=== PATIENT | female | born 1955 | race Caucasian/White ===

== ENCOUNTER → 2017-10-09 | Day surgery (SDC) | payer OTHER ==
--- NOTE | 2017-10-02 10:06 | Diagnostic Imaging Report ---
PROCEDURE: Frontal and lateral views of the chest. COMPARISON: None. INDICATIONS: PREOP CXR FINDINGS: Lines/tubes: None. Lungs: The lungs are well inflated. There is no evidence of pneumonia or pulmonary edema. Minimal subsegmental atelectasis at the lung bases. Pleura: There is no pleural effusion or pneumothorax. Heart and mediastinum: The cardiomediastinal silhouette is unremarkable. Bones: No acute bony abnormality. IMPRESSION: 1. No acute cardiopulmonary disease. Dictated by: ARNALDO HYDE M.D. on 10/02/2017 at 10:10 Electronically approved by: ARNALDO HYDE M.D. on 10/02/2017 at 10:10
[~2017-10-09] MED LIST: BUPIVACAINE HCL 0.5% 10ML MPF VIAL INJ ONE; BYSTOLIC10 MG PO; CEFAZOLIN SOD 2 GM/D5W 50ML 50 ML IV ONE; CITALOPRAM HBR20 MG PO; DEXAMETHASONE SOD PHOS INJ 4 MG/ML VIAL ONE; DEXILANT60 MG PO; FENTANYL CITRATE/PF 100MCG/2 ML INJ ONE; KETOROLAC TROMETHAMINE 30 MG/ML VIAL ONE; LEVOTHYROXINE50 MCG PO; LIDOCAINE HCL 2% LOCAL INJ 5 ML SDV VIAL INJ ONE; MIDAZOLAM HCL 2 MG/2 ML VIAL ONE; ONDANSETRON HCL INJ 2 MG/ML VIAL ONE; PANTOPRAZOLE SO40 MG PO; PROPOFOL IV EMULSION 10 MG/ML 20 ML VIAL ONE; SEVOFLURANE INHAL SOLN 250 ML PEN BTL ONE; TYLENOL WITH C1 EACH PO
--- NOTE | 2017-10-09 17:08 | Operative Report ---
DATE OF PROCEDURE: October 09, 2017 PREOPERATIVE DIAGNOSES 1. 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 2. Deep peroneal nerve entrapment, dorsal aspect of the right foot. 3. Tailor's bunion, right foot. 4. Hammer toe 5th digit right foot. POSTOPERATIVE DIAGNOSES 1. 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 2. Deep peroneal nerve entrapment, dorsal aspect of the right foot. 3. Tailor's bunion, right foot. 4. Hammer toe 5th digit right foot. ANESTHESIA: General endotracheal. HEMOSTASIS: Right thigh tourniquet to 350 mmHg. TITLE OF OPERATION: 1. Modified Arvind bunionectomy of the right foot with internal fixation. 2. Deep peroneal nerve neurolysis with microscopic evaluation. 3. Tailor's bunion correction, right foot. 4. Arthroplasty 5th digit, right foot. ANESTHESIA: General endotracheal. HEMOSTASIS: Right thigh tourniquet at 350 mmHg. PROCEDURE IN DETAIL: The patient was taken to the operating room in a mildly sedated state and placed upon the operating table in supine position. Following induction of general anesthetic, the right lower extremity was elevated to 60 degrees to exsanguinate before inflating the pneumatic thigh tourniquet to 350 mmHg for hemostasis. Right left lower extremity is placed upon the operating table prior to performing the following procedure: Procedure #1: Modified Arvind bunionectomy of the right foot. An approximately 6 cm dorsilinear incision was made overlying the dorsal medial aspect of the 1st metatarsophalangeal joint of the right foot. Incision was deepened via sharp and blunt dissection down to the level of the dorsal capsular structure. Care was taken to identify and retract all vital structures encountered. The head of the 1st metatarsal below the surgical site was remodeled utilizing oscillating saw. The conjoined tendon of the adductor hallucis muscle was identified and tenotomized. A [id number] V osteotomy was placed at the apex distally and at the base proximally to allow for relative shift lateral-shelley over the head of the more proximal segment, which was then impacted and stabilized with 2 cortical bone screws. Medial eminence was further remodeled as was the dorsal prominence. DJD was noted within the joint but not in a severe manner. There was approximately 80 percent articulate cartilage intact. Attention was then directed to the dorsal aspect of foot where the deep peroneal nerve was noted to be entrapped. Linear longitudinal incision was made overlying the entrapped area. The deep peroneal nerve on the dorsal aspect of the tarsus of the right foot the incision was deepened via sharp and blunt dissection down to the level of the actual entrapment of the nerve overlying the tarsus where the extensor hallucis brevis tendon extended across the dorsal aspect of the deep peroneal nerve. This tendon was sectioned in that area and the nerve itself was treated under microscopic evaluation with neurolysis of all adhesions. This having been accomplished, the area was irrigated with copious amounts of sterile saline solution. Human tissue allograft was used to be applied overlying that area to facilitate nerve healing. The deep closure was 3-0 Vicryl. Subcutaneous closure was 4-0 Vicryl and skin closure 4-0 nylon. Attention was then directed to the Tailor's bunion site. Linear longitudinal incision made overlying the 5th met head. Lateral aspect was remodeled utilizing oscillating saw and rotary bur. The area was irrigated and deep closure in layers of 3-0 Vicryl and 4-0 nylon. The attention was then directed to the 5th digit where a very large prominence of 5th proximal phalangeal head laterally was noted. Linear incision was made and an arthroplasty was performed with removal of the head of the 5th digit proximal phalanx. The area was then irrigated with copious amounts of sterile saline solution and deep closure with 3-0 Vicryl. Tendon repair with 3-0 Vicryl and skin closure with 4-0 nylon. The areas of surgery were then blocked with 0.5 Marcaine and Decadron [place]. Release of the tourniquet showed a normal hyperemic flush to all digits of the right foot and patient left the operating room with vital signs stable in apparent satisfactory condition, having tolerated both the anesthetic and procedure very well. Job#: [id number]
== END | disposition home or self-care (01) ==
LOC: OR 07:03
PROVIDERS: ATTEND Podiatrist Foot Surgery
DX: M20.11 Hallux valgus (acquired), right foot (principal); G57.31 Lesion of lateral popliteal nerve, right lower limb; M21.621 Bunionette of right foot; M20.41 Other hammer toe(s) (acquired), right foot; M19.071 Primary osteoarthritis, right ankle and foot; I10 Essential (primary) hypertension; K21.9 Gastro-esophageal reflux disease without esophagitis; F41.9 Anxiety disorder, unspecified; Z88.2 Allergy status to sulfonamides; Z01.810 Encounter for preprocedural cardiovascular examination; Z01.818 Encounter for other preprocedural examination
CPT/HCPCS: 28110; 28285; 28296; 64704; 64727; 71046; 93005; J1100; J1885; J2001; J2250; J2405; 76001

== ENCOUNTER 2019-01-27 23:32 | Emergency (ER) | payer BC, OTHER ==
[~2019-01-27] VITALS: Ht 170.2 cm; Wt 93.0 kg
[~2019-01-27 23:32] MED LIST changes: -BUPIVACAINE HCL 0.5% 10ML MPF VIAL INJ ONE; -CEFAZOLIN SOD 2 GM/D5W 50ML 50 ML IV ONE; -DEXAMETHASONE SOD PHOS INJ 4 MG/ML VIAL ONE; -FENTANYL CITRATE/PF 100MCG/2 ML INJ ONE; -KETOROLAC TROMETHAMINE 30 MG/ML VIAL ONE; -LIDOCAINE HCL 2% LOCAL INJ 5 ML SDV VIAL INJ ONE; -MIDAZOLAM HCL 2 MG/2 ML VIAL ONE; -ONDANSETRON HCL INJ 2 MG/ML VIAL ONE; -PROPOFOL IV EMULSION 10 MG/ML 20 ML VIAL ONE; -SEVOFLURANE INHAL SOLN 250 ML PEN BTL ONE
[2019-01-28] MEDS ORDERED: TETANUS/DIPHTHERIA TOX ADULT 0.5 ML SYR IM ONE
[2019-01-28 00:28] VITALS: BP 112/75
== END 2019-01-28 01:39 | disposition home or self-care (01) ==
LOC: ER 23:32
DX: S61.217A Laceration without foreign body of left little finger without damage to nail, initial encounter (principal); W26.0XXA Contact with knife, initial encounter; Y92.008 Other place in unspecified non-institutional (private) residence as the place of occurrence of the external cause; I10 Essential (primary) hypertension; E03.9 Hypothyroidism, unspecified; K21.9 Gastro-esophageal reflux disease without esophagitis
CPT/HCPCS: 90471; 90714; 99283

== ENCOUNTER → 2020-01-13 | Day surgery (SDC) | payer OTHER ==
[2020-01-10 14:39] LABS: BASOPHILS # (AUTO) 0.1 (0.0-0.1); BASOPHILS % 1.2 % (0.0-1.0); EOSINOPHILS # (AUTO) 0.1 (0.0-0.4); EOSINOPHILS % 1.8 % (0.0-6.0); HEMATOCRIT 46.5 % (34.2-44.1); LYMPHOCYTES # (AUTO) 1.3 (1.0-3.2); LYMPHOCYTES % 26.6 % (18.0-39.1); MEAN CORPUSCULAR HEMOGLOBIN 28.9 pg (28-32); MEAN CORPUSCULAR HGB CONC 32.3 g/dL (31-35); MEAN CORPUSCULAR VOLUME 89.6 fL (81-99); MONOCYTES # (AUTO) 0.5 (0.2-0.8); MONOCYTES % 10.7 % (4.4-11.3); NEUTROPHILS % 59.3 % (38.7-80.0); PLATELET COUNT 222 x10e3/uL (140-360); RED BLOOD COUNT 5.19 x10e6/uL (3.6-5.1); RED CELL DISTRIBUTION WIDTH 13.8 % (11.7-14.4)
[~2020-01-13] MED LIST changes: +BUPIVACAINE HCL 0.5% INJ 30 ML VIAL INJ ONE; +CEFAZOLIN SOD 1 GM/NS 50ML 100 ML IV ONE; +CENTRUM SILVER1 EAC3 PO; +DEXAMETHASONE SOD PHOS INJ 4 MG/ML VIAL ONE; +FENTANYL CITRATE/PF 100MCG/2 ML INJ ONE; +HYDROCODONE/APAP 5MG-325MG TAB ONE; +KETOROLAC TROMETHAMINE 30 MG/ML VIAL ONE; +LIDOCAINE HCL 2% LOCAL INJ 5 ML SDV VIAL INJ ONE; +MIDAZOLAM HCL 2 MG/2 ML VIAL ONE; +NEOSTIGMINE 1 MG/ML 10ML VIAL ONE; +ONDANSETRON HCL INJ 2MG/ML 2ML 2 MG/ML VIAL ONE; +PROPOFOL IV EMULSION 10 MG/ML 20 ML VIAL ONE; +SEVOFLURANE INHAL SOLN 250 ML PEN BTL ONE; +VITAMIN D PO
[2020-01-13 13:25] VITALS: BP 144/88
== END | disposition home or self-care (01) ==
LOC: OR 08:20
PROVIDERS: ATTEND Podiatrist Foot Surgery
DX: M20.12 Hallux valgus (acquired), left foot (principal); M20.42 Other hammer toe(s) (acquired), left foot; M21.622 Bunionette of left foot; I10 Essential (primary) hypertension; E03.9 Hypothyroidism, unspecified; R00.1 Bradycardia, unspecified; K21.9 Gastro-esophageal reflux disease without esophagitis; K44.9 Diaphragmatic hernia without obstruction or gangrene; Z88.2 Allergy status to sulfonamides; Z01.810 Encounter for preprocedural cardiovascular examination; Z01.812 Encounter for preprocedural laboratory examination; Z01.818 Encounter for other preprocedural examination; Z20.828 Contact with and (suspected) exposure to other viral communicable diseases
CPT/HCPCS: 28110; 28285; 28296; 36415; 71046; 85025; 93005; C1713 ×3; J0690; J1100; J1885; J2001; J2250; J2405; J2704; J2710; J3010; Q4100; U0002; 76000